=== PATIENT | female | born 1945 | race Caucasian/White ===

== ENCOUNTER 2019-05-05 08:02 | Emergency (ER) | payer MEDICARE ==
--- NOTE | 2019-05-05 08:49 | RAD ---
XR Knee Lt 4 View STANDARD HISTORY: Fall, left knee pain FINDINGS: No fracture or dislocation is identified. Degenerative changes are present.
== END 2019-05-05 09:21 | disposition home or self-care (01) ==
LOC: ERS 08:02
DX: S83.92XA Sprain of unspecified site of left knee, initial encounter (principal); E11.9 Type 2 diabetes mellitus without complications; I10 Essential (primary) hypertension; W19.XXXA Unspecified fall, initial encounter